=== PATIENT | female | born 1985 | race Caucasian/White ===

== ENCOUNTER → 2016-12-15 | Outpatient (CLI) | payer OTHER | END | disposition home or self-care (01) | LOC: C.PAPS 13:51 | PROVIDERS: ATTEND Obstetrics & Gynecology | DX: Z12.4 Encounter for screening for malignant neoplasm of cervix (principal) ==

== ENCOUNTER → 2016-12-15 | Outpatient (CLI) | payer OTHER ==
[2016-12-15 14:49] LABS: URINE APPEARANCE CLEAR (CLEAR); URINE BILIRUBIN NEG (NEG); URINE COLOR YELLOW; URINE NITRITE NEG (NEG); URINE SPECIFIC GRAVITY 1.022 (1.000-1.030); UROBILINOGEN NEG (NEG)
[2016-12-15 14:54] LABS: MANUAL MICROSCOPIC REQUIRED? NO; REVIEW REQ? NO
[2016-12-19 08:46] LABS: CHLAMYDIA TRACH RNA*** NOT DETECTED (NOT DETECTED); GC (NEIS GONORRHOEAE)RNA** NOT DETECTED (NOT DETECTED)
== END | disposition home or self-care (01) ==
LOC: C.LABSPEC 13:27
PROVIDERS: ATTEND Obstetrics & Gynecology
DX: Z34.90 Encounter for supervision of normal pregnancy, unspecified, unspecified trimester (principal)

== ENCOUNTER → 2017-01-12 | Outpatient (CLI) | payer OTHER ==
[2017-01-12 10:33] LABS: BASO % 0.4 %; BASO ABS # 0.03 K/uL (0-0.2); COMPLETE YES; EOS % 0.6 %; HEMATOCRIT 39.9 % (37-47); IG% 0.5 %; LYMPH % 17.9 %; LYMPH ABS # 1.53 K/uL (1.2-3.4); MEAN CELL VOLUME 94.5 fL (80-100); MEAN CORPUSCULAR HEMOGLOBIN 32.2 pg (25-34); MEAN CORPUSCULAR HGB CONC 34.1 g/dl (32-36); MEAN PLATELET VOLUME 9.7 fL (7.4-10.4); MONO % 7.5 %; NEUT % 73.1 %; PLATELET COUNT 282 K/uL (130-400); RED BLOOD COUNT 4.22 M/uL (4.2-5.4); WHITE BLOOD COUNT 8.55 K/uL (4.8-10.8)
== END | disposition home or self-care (01) ==
LOC: C.LAB1850 09:36
PROVIDERS: ATTEND Obstetrics & Gynecology
DX: Z34.90 Encounter for supervision of normal pregnancy, unspecified, unspecified trimester (principal)

== ENCOUNTER → 2017-02-09 | Outpatient (CLI) | payer OTHER ==
[2017-02-09 18:06] LABS: GTGD 50 Grams
== END | disposition home or self-care (01) ==
LOC: C.LAB1850 14:56
PROVIDERS: ATTEND Obstetrics & Gynecology
DX: Z34.82 Encounter for supervision of other normal pregnancy, second trimester (principal)

== ENCOUNTER → 2017-03-07 | Outpatient (CLI) | payer OTHER | END | disposition home or self-care (01) | LOC: C.LAB1850 10:14 | PROVIDERS: ATTEND Obstetrics & Gynecology | DX: O28.3 Abnormal ultrasonic finding on antenatal screening of mother (principal) ==

== ENCOUNTER → 2017-05-05 | Outpatient (CLI) | payer OTHER ==
[2017-05-05 17:58] LABS: GTGD 50 Grams
[2017-05-05 18:36] LABS: URINE APPEARANCE CLEAR (CLEAR); URINE BILIRUBIN NEG (NEG); URINE COLOR YELLOW; URINE EPITHELIAL CELL AUTO >30 /lpf (0-5); URINE NITRITE NEG (NEG); URINE SPECIFIC GRAVITY 1.026 (1.000-1.030); UROBILINOGEN NEG (NEG)
[2017-05-05 18:43] LABS: MANUAL MICROSCOPIC REQUIRED? NO; REVIEW REQ? NO
== END | disposition home or self-care (01) ==
LOC: C.LAB1850 15:33
PROVIDERS: ATTEND Obstetrics & Gynecology
DX: Z34.82 Encounter for supervision of other normal pregnancy, second trimester (principal)

== ENCOUNTER → 2017-06-26 | Outpatient (CLI) | payer OTHER | END | disposition home or self-care (01) | LOC: C.LABSPEC 17:42 | PROVIDERS: ATTEND Obstetrics & Gynecology | DX: Z34.83 Encounter for supervision of other normal pregnancy, third trimester (principal) ==

== ENCOUNTER 2017-07-31 07:32 | Inpatient (IN) | payer OTHER ==
[~2017-07-31] VITALS: Ht 170.2 cm; Wt 76.2 kg
[2017-07-31] MEDS ORDERED: LACTATED RINGER'S 1000ML 1,000 ML IV PRN (07:56)
[2017-07-31] MEDS ORDERED: MISOPROSTOL 25 MCG TAB PV ONE (08:00)
[2017-07-31 08:25] VITALS: Ht 170.2 cm; Wt 76.2 kg
[2017-07-31] MEDS ORDERED: PRENTAB26 PO (08:25)
[2017-07-31 08:31] LABS: HEMATOCRIT 36.2 % (37-47); HEMOGLOBIN 12.5 g/dL (12.0-16.0); MEAN CELL VOLUME 95.5 fL (80-100); MEAN CORPUSCULAR HGB CONC 34.5 g/dl (32-36); MEAN PLATELET VOLUME 10.4 fL (7.4-10.4); PLATELET COUNT 250 K/uL (130-400); RED CELL DISTRIBUTION WIDTH CV 13.5 % (11.5-14.5); RED CELL DISTRIBUTION WIDTH SD 46.8 fL (36.4-46.3); WHITE BLOOD COUNT 12.49 K/uL (4.8-10.8)
[2017-07-31] MEDS ORDERED: LACTATED RINGER'S 1000ML 500 ML IV PRN ×2 (11:55→14:13)
[2017-07-31] MEDS ORDERED: OXYTOCIN 30 UNITS/500ML NSS IV PRN ×2 (12:00→14:45)
[2017-07-31] MEDS: LACTATED RINGER'S 1000ML 1,000 ML IV SCH ×2 (12:30→13:38)
[2017-07-31] MEDS ORDERED: BUPIVACAINE 0.25% 30 ML VIAL ONE ×2 (13:22→13:32)
[2017-07-31] MEDS ORDERED: EpHEDrine SULFATE INJ 50 MG/ML AMP ONE (13:23)
[2017-07-31] MEDS ORDERED: FENTANYL CITRATE INJ 50 MCG/1 ML 2 ML VIAL ONE (13:23)
[2017-07-31] MEDS ORDERED: FENTANYL 2MCG/ML ROPIV 1.25MG/ML 100ML BAG EPI ONE (13:24)
[2017-07-31] MEDS ORDERED: NALOXONE HCL INJ 1 MG in SODIUM CHLORIDE 0.9% 1000ML 1,000 ML IV PRN (14:13)
[2017-07-31] MEDS ORDERED: EpHEDrine SULFATE INJ 50 MG/ML AMP IV PRN (14:15)
[2017-07-31] MEDS ORDERED: NALOXONE HCL INJ 0.4 MG/1 ML VIAL/CARP IV PRN (14:15)
[2017-07-31] MEDS ORDERED: FENTANYL 2MCG/ML ROPIV 1.25MG/ML 100ML BAG EPI PRN (14:15)
[2017-07-31] MEDS ORDERED: NALBUPHINE HCL INJ 10 MG/ML AMP IV PRN (14:15)
[2017-07-31] MEDS ORDERED: DiphenhydrAMINE HCL 50 MG/ML VIAL IV PRN (14:15)
[2017-07-31] MEDS ORDERED: ONDANSETRON INJ 2 MG/ML 2 ML VIAL IV PRN (14:15)
[2017-07-31] MEDS ORDERED: OXYCODONE/ACETAMINOPHEN 5-325 TAB PO PRN (14:45)
[2017-07-31] MEDS ORDERED: DIPHTHERIA/TETANUS/PERTUSSIS 0.5 ML SYR/VIAL IM. ONE (14:45)
[2017-07-31] MEDS ORDERED: LANOLIN OINT EXT PRN (14:45)
[2017-07-31] MEDS ORDERED: ACETAMINOPHEN 325 MG TAB PO PRN (14:45)
[2017-07-31] MEDS ORDERED: SUPERCREAM 0.870 % 15GM JAR EXT PRN (14:45)
[2017-07-31] MEDS ORDERED: HYDROCORTISONE ACETATE 25 MG SUPP PR PRN (14:45)
[2017-07-31] MEDS ORDERED: BENZOCAINE 20% AER SPR 82.5 GM CAN EXT PRN (14:45)
--- NOTE | 2017-07-31 14:47 | Vaginal Delivery Summary ---
Vaginal Delivery Summary I was called to the bedside because the patient was completely dilated, having late deep decelerations, and had just received her epidural. The nurses anticipated that a quick delivery was coming. I confirmed complete dilation with +2 station and prepped the patient for delivery, monitoring her FHT which were Cat 2. She was asked to push and unfortunately had such a dense block that she could not effect any movement of the fetus whatsoever in a voluntary manner - however the contraction itself was moving the baby forwards noticeably. Several pushing attempts proved that Annabel was unable to move the baby voluntarily much if any at all. FHT continued with late deep decelerations. We discussed operative delivery with vacuum assist and the patient was in agreement with attempt. She was informed of the risks to mother and baby. The bladder was emptied via red rubber catheter after betadine prep, and the fetus was noted in DAVID position. Suction cup was applied, and through the next contraction, three pushing attempts were given with 2 pop offs. The patient rested until her next contraction. The vacuum was reapplied, and she brought the head to with the next push. The vacuum was then removed and the head remained at ; the patient was unable to push it the rest of the way out. Another contraction later, she rested while the contraction alone pushed the head out. The shoulders then delivered with gentle downward then upward guidance from my hands. A vigorous male was placed on the maternal abdomen, the cord was clamped and cut. The placenta delivered spontaneously and was intact with a 3 vc. No lacerations of the cervix, vagina or perineum occurred. EBL 200cc.
[2017-07-31] MEDS ORDERED: LACTATED RINGER'S 1000ML 1,000 ML IV SCH (15:00)
--- NOTE | 2017-07-31 17:50 | Medical Student: [facility] ---
Medical Student Delivery Note Annabel Ruiz is a 29 yo white female [id number] now 2 with BENNETT of 07/22/2017 as estimated by LMP 4/36288. She presented at 1 cm dilation, 50% effacement, and - 2 station at 0747 this morning for scheduled induction. Cervix ripened with Cytotec. Vigorous male born at 1432 via vaginal delivery with vacuum assist. Patient had epidural placed right before delivery, and baby started having deep late decelerations (category 2 strip). Previously measured at 4 cm dilation, then epidural placed and she was suddenly at 9 cm dilation. So vacuum assist was used since mother was having trouble pushing with contractions, due to dense block from epidural. Risks to mother and baby were discussed prior to use of vacuum. Bladder was emptied via betadine prep and red rocket for 50-100ml of yellow clear urine prior to vacuum assist. 2 pop-offs were recorded, then of head and contraction pushed head of baby out (DAVID). During next contraction mother participated in pushing rest of baby out, along with gentle downward pressure to delivery anterior shoulder then upward delivery of rest of baby by Dr. Bustillo. Baby placed on mother's abdomen and cord was clamped and cut. Apgars of 9 (1 minute) and 9 (5 minute) delivered over intact perineum. Spontaneous delivery of placenta with cord blood sample obtained. Perineum was inspected and showed no laceration. EBL of 200ml.
--- NOTE | 2017-07-31 18:39 | Anesthesiology Progress Note ---
Anesthesia Post Op Note Date & Time Jul 31, 2017 at 18:39 Vital Signs Pain Intensity: 1 Notes Mental Status: alert / awake / arousable, participated in evaluation Pt Amnestic to Procedure: Yes Nausea / Vomiting: adequately controlled Pain: adequately controlled Airway Patency, RR, SpO2: stable & adequate BP & HR: stable & adequate Hydration State: stable & adequate Anesthetic Complications: no major complications apparent
--- NOTE | 2017-07-31 18:41 | Anesthesia Procedure Note ---
Anesthesia Epidural Removal Nt Date & Time Jul 31, 2017 at 18:41 Vital Signs Pain Intensity: 1 Notes Mental Status: alert / awake / arousable, participated in evaluation Nausea / Vomiting: adequately controlled Pain: adequately controlled Airway Patency, RR, SpO2: stable & adequate BP & HR: stable & adequate Hydration State: stable & adequate Neuraxial Anesthesia: was administered Anesthetic Complications: no major complications apparent, pt satisfied with anesthetic care Epidural: removed without complications, with tip intact
[2017-07-31 19:25] VITALS: BP 110/72; PULSE 73; TEMP 36.6; O2SAT 97
[2017-07-31] MEDS: IBUPROFEN 600 MG TAB PO PRN (19:55)
[2017-07-31] MEDS: DOCUSATE SODIUM 100 MG CAP PO SCH (19:56)
[2017-07-31 23:30] VITALS: BP 115/63; PULSE 65; TEMP 36.6; O2SAT 98
[2017-08-01 03:45] VITALS: BP 109/70; PULSE 58; TEMP 36.4; O2SAT 98
--- NOTE | 2017-08-01 06:11 | Discharge Instructions ---
Discharge Instructions Date of Service Aug 01, 2017. Admission Reason for Admission: Induction Discharge Discharge Diagnosis / Problem: vaginal delivery Discharge Goals Goal(s): Routine recovery after delivery Medications Continue Dispensed Medications: supercream, dermaplast, tucks, lansinoh Activity Recommendations Activity Limitations: per Instructions/Follow-up section . Instructions / Follow-Up Instructions / Follow-Up ACTIVITY RECOMMENDATIONS: * Gradual return to full activity over the next 2-3 weeks. * No lifting - nothing heavier than baby over the next 2-3 weeks. * Do not engage in vigorous exercise, sexual activity or sports until cleared by your physician. * Do not drive or operate any motorized equipment until cleared by your physician. * You may shower/bathe daily. MEDICATIONS: For discomfort or pain, you may use Acetaminophen (Tylenol), Ibuprofen (Advil), or Naproxen (Aleve) following the package directions. For constipation you may use Colace following the package directions. BREAST CARE: If you are not breast feeding: * Wear a supportive bra 24 hours a day for one to two weeks. * Avoid stimulating your breasts and nipples as much as possible during the first few weeks after delivery. * When taking a shower, have the warm water hit your back, not breasts. * When your breasts feel full, apply ice packs. Usually three to four times a day helps ease the discomfort. * Take a mild pain medication (Tylenol / Motrin) when you are uncomfortable. If breast feeding: * Use breast milk to lubricate nipples. Lansinoh cream may be used for sore nipples. You do not need to remove cream prior to breast feeding. If using a different brand of cream, check the label for directions regarding removal of cream prior to nursing. * Wear a supportive bra. * If having problems with breasts or breast feeding, call a technical sales consultant or your health care provider. EPISIOTOMY CARE: After delivery, if you have an episiotomy (stitches), the following steps will ease discomfort and aid healing. * For the first 24 hours after delivery, place ice packs next to your episiotomy to help reduce swelling. * After the first 24 hour-period, sitz baths, either portable or in the tub, are suggested. A shower with a shower arm sprayed over the episiotomy may be comforting. * Christie care should be done after each voiding and bowel movement. Squirt warm water from a plastic bottle over the perineum (region of the body between the anus and urinary opening) and pat dry. * Use Dermoplast to ease discomfort. Shake container. [place] directly over the episiotomy. Place a Tucks on a clean sanitary pad next to your episiotomy. SPECIAL CARE INSTRUCTIONS: When you are discharged from the hospital, it is important for you to follow the instructions listed below: * During the first week at home, you should be able to care for yourself and your baby. In addition, the usual light household activities are encouraged. * Limit your activities to the way you feel. Do not try to clean the house or move furniture. Be sensible. * If you actively engage in sports and have done so up until the time of your delivery, you may resume these activities as soon as you feel able. This may take up to one month or even longer. Use good judgment. * Continue to take your vitamins for at least six weeks after the of your baby. * Your diet need not be limited unless you were on a special diet before your delivery. Breast-feeding mothers need around 2500 calories per day and at least 64-80 ounces of fluid per day (8 to 10 glasses). * You should eat foods from the four major food groups. Crash diets or fad diets are to be avoided. Eating lean meats, fresh fruits and vegetables, low-fat dairy products, high fiber foods and a regular exercise program, will help you get back to your pre- weight without putting your health at risk. * Constipation is sometimes a problem after delivery. Take a mild laxative as needed. If breast feeding, Milk of Magnesia is acceptable to use. You may use a suppository or Fleets enema if no episiotomy. * A daily shower or tub bath is suggested. Be sure to thoroughly and gently dry the perineum. * A bloody vaginal discharge will usually continue until around four weeks post . A small amount of bleeding may continue for as long as six weeks. Vaginal discharge changes from the bright red bleeding after delivery to pink then brownish and finally yellowish-pink before becoming white and disappearing. * Bleeding may increase with activity. Your first period may come in 4-8 weeks. If you are breast feeding, your period may be delayed even longer. * [place] (sex) can begin whenever both you and your partner feel comfortable and do not have any form of genital infection. It is recommended that you wait at least six weeks for internal and external healing to occur. If you have questions, please talk to your health care practitioner. A condom should be used to prevent infection and . * Foreplay, gentle intercourse and lubrication is very important the first several times to prevent pain. A water-based lubricant such as K-Y jelly or Astroglide may be used. * If you have RH negative blood and your baby is RH positive, you will receive RHOGAM by injection prior to discharge. The nurse will give you a card to keep with you that has the date and place that you received RHOGAM after delivery. * During your care, you had a Rubella screen done to check for the presence of rubella antibodies in your blood. If your test was negative, you will receive a Rubella vaccine prior to discharge. This vaccine may cause a fever, soreness at the injection site and flu-like symptoms. If these symptoms persist, notify your health care practitioner. is not advised for one month after a Rubella vaccine. * Verbalizes understanding of car seat law as reviewed with patient nursing. * Car Seat hand-out given and reviewed with patient by nursing. * Shaken baby information reviewed with patient by nursing. Call you doctor if: * Heavy bleeding (saturating several pads an hour) or passing clots the size of your fist. * A fever >101 degrees F (38.3 degrees C) on two occasions four hours apart and /or chills. * Unusual pain in the pelvic or vaginal areas. * "Baby Blues" lasting longer than two weeks. If you have any questions or concerns, call your health care practitioner at . FOLLOW UP VISIT: * Please call the office at to schedule a 6 week examination. It is important you keep this appointment. It is important for you to make arrangements for either yearly or twice yearly check-ups thereafter. Current Hospital Diet Patient's current hospital diet: Regular OB Diet Discharge Diet Recommended Diet: Regular OB Diet Pending Studies Studies pending at discharge: no Medical Emergencies . Who to Call and When: Medical Emergencies: If at any time you feel your situation is an emergency, please call 911 immediately. . Non-Emergent Contact Non-Emergency issues call your: Vice President Of News . . "Provider Documentation" section prepared by Fernando Schrader. . VTE Core Measure Inpt VTE Proph given/why not?: Treatment not indicated
--- NOTE | 2017-08-01 06:16 | Medical Student: [facility] ---
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 Subjective conversation w/ patient, physical exam, chart review, lab review Ambulation: ambulating normally Voiding: no voiding problems, no incontinence Passing Gas: No (felt gas cramping but no gas passed) Diet Tolerance: Regular Diet Lochia: Moderate (changing pad every 2-3 hours, only soaked through if went longer while sleeping) Feeding Type: Breast Feeding Pain: currently denies. headache afer delivery resolved after tylenol & morphine Review of Systems Constitutional: No fever, No chills Respiratory: No cough, No shortness of breath Cardiac: No chest pain, No palpitations Abdomen: No pain, No nausea, No vomiting Female : No dysuria Objective Vital Signs Date Time Temp Pulse Resp B/P (MAP) Pulse Ox O2 Delivery O2 Flow Rate FiO2 08/01/17 03:45 36.4 58 16 109/70 (83) 98 Room Air 08/01/17 03:45 98 Room Air 07/31/17 23:30 36.6 65 18 115/63 (80) 98 Room Air 07/31/17 19:25 36.6 73 18 110/72 (85) 97 07/31/17 19:25 97 Room Air Physical Exam General Appearance: WELL-APPEARING, WD/WN, NO APPARENT DISTRESS Respiratory/Chest: lungs clear, normal breath sounds Cardiovascular: regular rate, rhythm, no murmur Abdomen: soft, no organomegaly Fundus: Firm, Relation to Umbilicus (midline, 1 fingerbreath below umbilicus) Extremities: normal inspection, no pedal edema, no calf tenderness Laboratory Results Last 24 Hours Test 07/31/17 08:09 08/01/17 04:44 White Blood Count 12.49 K/uL Red Blood Count 3.79 M/uL Hemoglobin 12.5 g/dL Hematocrit 36.2 % Mean Corpuscular Volume 95.5 fL Mean Corpuscular Hemoglobin 33.0 pg Mean Corpuscular Hemoglobin Concent 34.5 g/dl RDW Standard Deviation 46.8 fL RDW Coefficient of Variation 13.5 % Platelet Count 250 K/uL Mean Platelet Volume 10.4 fL Assessment and Plan Post- Day Number: 1 Continue Routine Care: 32 f now 2 PPD1, GBS-/O+/RI. Patient is doing well clinically. Vitals reviewed, WNL. Hgb 12.5 at admission, pending today. Plan; 1. Continue recovery from vaginal delivery and post- care (ambulation, pain control, monitor lochia, breast feeding support).
[2017-08-01 06:21] LABS: HEMATOCRIT 38.3 % (37-47); HEMOGLOBIN 13.4 g/dL (12.0-16.0)
--- NOTE | 2017-08-01 06:41 | OB/GYN Progress Note ---
WIRER MAINTENANCE Progress Note Date of Service Aug 01, 2017. Subjective conversation w/ patient, physical exam, chart review, lab review Ambulation: ambulating normally Voiding: no voiding problems Passing Gas: Yes Diet Tolerance: Regular Diet Lochia: Small Feeding Type: Breast Feeding Pain: denies pain Review of Systems Constitutional: No fever, No chills Respiratory: No cough, No shortness of breath Cardiac: No chest pain Abdomen: No pain, No nausea, No vomiting Female : No dysuria Objective Vital Signs Date Time Temp Pulse Resp B/P (MAP) Pulse Ox O2 Delivery O2 Flow Rate FiO2 08/01/17 03:45 36.4 58 16 109/70 (83) 98 Room Air 08/01/17 03:45 98 Room Air 07/31/17 23:30 36.6 65 18 115/63 (80) 98 Room Air 07/31/17 19:25 36.6 73 18 110/72 (85) 97 07/31/17 19:25 97 Room Air Physical Exam General Appearance: WELL-APPEARING, WD/WN, NO APPARENT DISTRESS Respiratory/Chest: lungs clear, normal breath sounds Cardiovascular: regular rate, rhythm, no murmur Abdomen: non tender, soft Fundus: Firm, Relation to Umbilicus (1 below ) Laboratory Results Last 24 Hours Test 07/31/17 08:09 08/01/17 06:09 White Blood Count 12.49 K/uL Red Blood Count 3.79 M/uL Hemoglobin 12.5 g/dL 13.4 g/dL Hematocrit 36.2 % 38.3 % Mean Corpuscular Volume 95.5 fL Mean Corpuscular Hemoglobin 33.0 pg Mean Corpuscular Hemoglobin Concent 34.5 g/dl RDW Standard Deviation 46.8 fL RDW Coefficient of Variation 13.5 % Platelet Count 250 K/uL Mean Platelet Volume 10.4 fL Assessment and Plan Post- Day Number: 1 Continue Routine Care: 32 yo female PPD1 vaginal delivery with vacuum assist Pt is GBS-/O+/RI. Patient is doing well clinically. Reviewed vitals, stable and WNL. Hgb 12.5 at admission, 13.4 today. Plan; 1. Recovery from vaginal delivery; Continue pp care; ambulation, support BF, control pain, monitor lochia 2. Discussed discharge planning Resident Physician Supervision Note: I was present with Dr. Schrader during the history and exam. I discussed the case with the resident and agree with the findings and plan as documented in the note. Any exceptions or clarifications are listed here: PPD#1 doing well. Requesting discharge today, DC instructions reviewed. Documented By: Elena Hoskins
[2017-08-01 08:00] VITALS: BP 106/72; PULSE 66; TEMP 36.4
[2017-08-01] MEDS ORDERED: PRENATAL VITAMIN TAB PO SCH (08:00)
[2017-08-01] MEDS: DOCUSATE SODIUM 100 MG CAP PO SCH (08:30)
[2017-08-01] MEDS: IBUPROFEN 600 MG TAB PO PRN (12:02)
[2017-08-01 13:30] VITALS: BP 119/72; PULSE 59; TEMP 36.5
[2017-08-01 16:05] VITALS: BP 116/76; PULSE 58; TEMP 36.4
[2017-08-01 18:35] VITALS: BP_DIAS 76; PULSE 58; TEMP 36.4
== END 2017-08-01 18:35 | disposition home or self-care (01) | DRG 775 ==
LOC: C.LD 07:32 → C.OBG 19:19
PROVIDERS: ADMIT Obstetrics & Gynecology; ATTEND Obstetrics & Gynecology
PROC: 10D07Z6 Extraction of Products of Conception, Vacuum, Via Natural or Artificial Opening (ICD-10-PCS; principal; 2017-07-31)
DX: O48.0 Post-term pregnancy (principal); Z3A.41 41 weeks gestation of pregnancy; Z37.0 Single live birth